=== PATIENT | female | born 1955 ===

== ENCOUNTER 2021-11-23 13:52 | Emergency (ER) | payer OTHER ==
[~2021-11-23] VITALS: Ht 157.5 cm; Wt 83.0 kg
[2021-11-23] MEDS ORDERED: SYNTHROID137 MCG (14:29)
== END 2021-11-23 16:47 | disposition home or self-care (01) ==
LOC: ER 13:52
DX: K11.21 Acute sialoadenitis (principal); K05.10 Chronic gingivitis, plaque induced; F17.210 Nicotine dependence, cigarettes, uncomplicated